=== PATIENT | male | born 1950 | race Caucasian/White ===

== ENCOUNTER → 2016-12-14 | Outpatient (CLI) | payer BC ==
--- NOTE | 2016-12-14 08:09 | RADIOLOGY REPORT (SQ) ---
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 TECHNIQUE: CT scanogram of the bilateral lower extremities is performed including pelvis to ankles. Measurements of femur, tibia, and entire lower extremities performed by the radiologist and saved to PACS. All CT scanners at this facility use dose modulation, iterative reconstruction, and/or weight based d osing when appropriate to reduce radiation dose to as low as reasonably achievable (ALARA). [facility]: Dose Right [facility]: CareDose [facility]: Dose Right [facility]: Teradose 4D [facility]: [employer] RADIATION DOSE: 0.01 mGy. LIMITATIONS: None. FINDINGS: RIGHT: FEMUR: 45.1 cm. TIBIA: 35.1 cm. TOTAL RIGHT LOWER EXTREMITY LENGTH: 80.8 cm. LEFT: FEMUR: 45.1 cm. TIBIA: 35.1 cm. TOTAL LEFT LOWER EXTREMITY LENGTH: 80.8 cm. IMPRESSION: LEG LENGTH MEASUREMENTS DETAILED ABOVE. TECHNICAL DOCUMENTATION: JOB ID: [id number] Quality ID # [id number]: Final reports with documentation of one or more dose reduction techniques (e.g., Au tomated exposure control, adjustment of the mA and/or kV according to patient size, use of iterative reconstruction technique) 2010 [employer]- All Rights Reserved
== END ==
LOC: RAD 07:17
PROVIDERS: ATTEND Podiatrist Foot & Ankle Surgery
DX: Q72.819 Congenital shortening of unspecified lower limb (principal)
CPT/HCPCS: 77073

== ENCOUNTER → 2017-06-15 | Outpatient (CLI) | payer BC ==
[2017-06-15 13:26] LABS: ABSOLUTE BASOPHILS # (AUTO) 0.1 10^3/uL (0.0-0.2); ABSOLUTE EOSINOPHILS # (AUTO) 0.2 10^3/uL (0.0-0.6); ABSOLUTE LYMPHOCYTES (AUTO) 2.7 10^3/uL (0.5-4.7); ABSOLUTE MONOCYTES (AUTO) 0.6 10^3/uL (0.1-1.4); ABSOLUTE NEUT (AUTO) 5.3 10^3/uL (1.7-8.2); EOSINOPHILS % (AUTO) 1.8 % (0-6); HEMATOCRIT 38.4 % (37.9-51.0); LYMPHOCYTES % (AUTO) 30.4 % (13-45); MEAN CORPUSCULAR HEMOGLOBIN 27.2 pg (27.0-33.4); MEAN CORPUSCULAR HGB CONC 33.8 g/dL (32.0-36.0); MEAN CORPUSCULAR VOLUME 81 fl (80-97); MONOCYTES % (AUTO) 6.9 % (3-13); PLATELET COUNT 235 10^3/uL (150-450); RED BLOOD COUNT 4.76 10^6/uL (4.35-5.55); RED CELL DISTRIBUTION WIDTH 15.5 % (11.5-14.0); SEGMENTED NEUTROPHILS % (AUTO) 59.9 % (42-78); TOTAL CELLS COUNTED % (AUTO) 100 %; WHITE BLOOD COUNT 8.8 10^3/uL (4.0-10.5)
[2017-06-15 13:48] LABS: ALANINE AMINOTRANSFERASE 36 U/L (21-72); ALBUMIN 4.4 g/dL (3.5-5.0); ALKALINE PHOSPHATASE 110 U/L (38-126); ANION GAP 11 (5-19); ASPARTATE AMINO TRANSFERASE 25 U/L (17-59); BILIRUBIN,DIRECT 0.4 mg/dL (0.0-0.4); BILIRUBIN,TOTAL 0.6 mg/dL (0.2-1.3); BLOOD UREA NITROGEN 10 mg/dL (7-20); CALCIUM 9.3 mg/dL (8.4-10.2); CARBON DIOXIDE 27 mmol/L (22-30); CHLORIDE 104 mmol/L (98-107); CHOLESTEROL 156.52 mg/dL (0-200); GLUCOSE 97 mg/dL (75-110); POTASSIUM 4.3 mmol/L (3.6-5.0); SODIUM 141.5 mmol/L (137-145); TOTAL PROTEIN 7.4 g/dL (6.3-8.2); TRIGLYCERIDES 98 mg/dL (<150)
[2017-06-15 13:58] LABS: DIRECT LDL 91 mg/dL (<100)
== END ==
LOC: OD 12:35
PROVIDERS: ATTEND Internal Medicine
DX: R63.5 Abnormal weight gain (principal); Z12.5 Encounter for screening for malignant neoplasm of prostate; Z12.12 Encounter for screening for malignant neoplasm of rectum; E29.1 Testicular hypofunction; I10 Essential (primary) hypertension; Z09 Encounter for follow-up examination after completed treatment for conditions other than malignant neoplasm
CPT/HCPCS: 36415; 84443; 84403; 85025; 80053; 80061; G0103

== ENCOUNTER → 2017-07-28 | Outpatient (CLI) | payer BC ==
--- NOTE | 2017-07-28 13:43 | EKG REPORT ---
SEVERITY:- NORMAL ECG - SINUS RHYTHM : Confirmed by: Joe York MD 28-Jul-2017 13:43:08
== END ==
LOC: OD 09:15
PROVIDERS: ATTEND Internal Medicine
DX: R07.2 Precordial pain (principal); R10.84 Generalized abdominal pain
CPT/HCPCS: 93005; 93010

== ENCOUNTER → 2017-07-28 | Outpatient (CLI) | payer BC ==
--- NOTE | 2017-07-28 09:45 | RADIOLOGY REPORT (SQ) ---
EXAM DESCRIPTION: CT ABDOMEN WITH IV ORAL CONT COMPLETED DATE/TIME: 07/28/2017 8:44 am REASON FOR STUDY: ABD PAIN R10.84 GENERALIZED ABDOMINAL PAIN COMPARISON: None. TECHNIQUE: CT scan of the abdomen performed with intravenous and with oral contrast using helical sc anning technique with dynamic intravenous contrast injection. Images reviewed with lung, soft tissue, and bone windows. Reconstructed coronal and sagittal MPR images reviewed. Delayed images for evaluat ion of the urinary system also acquired and evaluated. All images stored on PACS. All CT scanners at this facility use dose modulation, iterative reconstruc tion, and/or weight based dosing when appropriate to reduce radiation dose to as low as reasonably ac hievable (ALARA). [facility]: Dose Right [facility]: CareDose [facility]: Dose Right [facility]: Teradose 4D [facility]: [employer] CONTRAST TYPE AND DOSE: contrast/concentration: Isovue 370.00 mg/ml; Total Contrast Delivered: 100.0 ml; Total Saline Delivered: 72.0 ml RENAL FUNCTION: Creatinine 1.0. RADIATION DOSE: CT Rad equipment meets quality standard of care and radiation dose reduction techniq ues were employed. CTDIvol: 13.6 - 15.8 mGy. DLP: 1012 mGy-cm. . LIMITATIONS: None. FINDINGS: LOWER CHEST: No significant findings. No nodules or infiltrates. LIVER: Normal size. No masses. No dilated ducts. SPLEEN: Normal size. No focal lesions. PANCREAS: 3 cm mass in the head of the pancreas. GALLBLADDER: No identified stones by CT criteria. No inflammatory changes to suggest cholecystitis. ADRENAL GLANDS: No significant masses or asymmetry. RIGHT KIDNEY AND URETER: No solid masses. No significant calcifications. No hydronephrosis or hyd roureter. LEFT KIDNEY AND URETER: No solid masses. No significant calcifications. No hydronephrosis or hydr oureter. AORTA AND VESSELS: No aneurysm. No dissection. Renal arteries, SMA, celiac without stenosis. RETROPERITONEUM: No retroperitoneal adenopathy, hemorrhage or masses. BOWEL AND PERITONEAL CAVITY: Diverticulosis descending colon. No masses or inflammatory changes. No free fluid or peritoneal masses. APPENDIX: Not visualized. ABDOMINAL WALL: No masses. No hernias. BONES: No significant or acute findings. OTHER: No other significant finding. IMPRESSION: 3 cm pancreatic head mass worrisome for carcinoma. TECHNICAL DOCUMENTATION: JOB ID: [id number] Quality ID # [id number]: Final reports with documentation of one or more dose reduction techniques (e.g., Au tomated exposure control, adjustment of the mA and/or kV according to patient size, use of iterative reconstruction technique) 2010 [employer]- All Rights Reserved Reading location - IP/workstation name: [email or web address]
== END ==
LOC: RAD 07:53
PROVIDERS: ATTEND Internal Medicine
DX: R07.2 Precordial pain (principal); R10.84 Generalized abdominal pain
CPT/HCPCS: 74160; 82565

== ENCOUNTER → 2017-09-12 | Outpatient (CLI) | payer BC ==
[~2017-09-12] MED LIST: PEGFILGRASTIM INJ 6 MG/0.6 ML DISP.SYRIN SUBCUT ONE; PEGFILGRASTIM INJ 6 MG/0.6 ML DISP.SYRIN SUBCUT PRN
== END ==
LOC: II 15:57
PROVIDERS: ATTEND Internal Medicine
PROC: 3E013GC Introduction of Other Therapeutic Substance into Subcutaneous Tissue, Percutaneous Approach (ICD-10-PCS; principal; 2017-09-12)
DX: Z76.89 Persons encountering health services in other specified circumstances (principal); C25.0 Malignant neoplasm of head of pancreas; D70.1 Agranulocytosis secondary to cancer chemotherapy
CPT/HCPCS: 96372; J2505

== ENCOUNTER 2017-11-12 15:55 | Emergency (ER) | payer BC ==
[2017-11-12] MEDS ORDERED: NORMAL SALINE 1000 ML 1,000 ML IV ONE (16:33)
--- NOTE | 2017-11-12 16:39 | ER Document Report ---
ED General - General Chief Complaint: Fever Stated Complaint: FEVER Time Seen by Provider: 11/12/17 16:23 TRAVEL OUTSIDE OF THE [place] IN LAST 30 DAYS: No - HPI Notes: Patient is a 67-year-old male with a history of pancreatic cancer currently on chemotherapy who presents to the ED with complaining of a fever of 100.8 earlier today with a sore throat and hoarseness in his voice. states that he is on his last chemo treatment this week and has been doing really well with the chemotherapy. states that he has been otherwise healthy aside from today. She did give Tylenol 3 hours ago which "broke his fever." Patient has otherwise been eating and drinking, but does have a decreased p.o. intake with the soreness in his throat. He is urinating normally and having normal bowel movements. Denies any drug allergies. They did call and discuss this with an oncologist fellow at [facility] who wanted him to come get blood work done and checked out (Dr. Hernandez [phone]) who would like us to call with results. Denies any headache, head injury, neck pain, changes in vision/speech/mentation/hearing , URI, chest pain, palpitations, syncope, cough, shortness of breath, wheeze, dyspnea, abdominal pain, nausea/vomiting/diarrhea, urinary retention, dysuria, hematuria, loss of control of bowel or bladder, numbness/tingling, muscle paralysis/weakness, or rash. - Related Data Allergies/Adverse Reactions: No Known Allergies Allergy (Unverified 12/22/10 11:50) Past Medical History - Social History Smoking Status: Never Smoker Family History: Reviewed & Not Pertinent - Past Medical History Cardiac Medical History: Reports: Hx Hypertension - LOTREL Denies: Hx Coronary Artery Disease, Hx Heart Attack Pulmonary Medical History: Denies: Hx Asthma, Hx Bronchitis, Hx COPD, Hx Pneumonia Neurological Medical History: Denies: Hx Cerebrovascular Accident, Hx Seizures GI Medical History: Denies: Hx Hepatitis, Hx Hiatal Hernia, Hx Ulcer Musculoskeletal Medical History: Reports Hx Arthritis - Hands Infectious Medical History: Denies: Hx Hepatitis Past Surgical History: Denies: Hx Open Heart Surgery, Hx Pacemaker - Immunizations Hx Diphtheria, Pertussis, Tetanus Vaccination: No Review of Systems - Review of Systems -: Yes All other systems reviewed and negative Physical Exam - Vital signs Vitals: Temp Pulse Resp BP Pulse Ox 99.1 F 95 16 101/65 96 11/12/17 16:05 11/12/17 16:05 11/12/17 16:05 11/12/17 16:05 11/12/17 16:05 - Notes Notes: PHYSICAL EXAMINATION: GENERAL: Well-appearing, well-nourished and in no acute distress. HEAD: Atraumatic, normocephalic. EYES: Pupils equal round and reactive to light, extraocular movements intact, sclera anicteric, conjunctiva are normal. ENT: EAC clear b/l. TM's intact b/l without erythema, fluid, or perforation. Nares patent and without discharge. oropharynx with what appears to be a fungal white scrapable coating without purulent exudates. No tonsilar hypertrophy, + mild erythema. Moist mucous membranes. No sinus tenderness. NECK: Normal range of motion, supple without lymphadenopathy. no rigidity/ meningismus. LUNGS: Breath sounds clear to auscultation bilaterally and equal. No wheezes rales or rhonchi. HEART: Regular rate and rhythm without murmurs, rubs, gallops. ABDOMEN: Soft, nontender, nondistended abdomen. No guarding, no rebound. No masses appreciated. Normal bowel sounds present. No CVA tenderness bilaterally. Musculoskeletal: FROM to passive/active. Strength 5+/5. Extremities: No cyanosis, clubbing, or edema b/l. Peripheral pulses 2+. Capillary refill less than 3 seconds. NEUROLOGICAL: Cranial nerves grossly intact. Normal speech, normal gait. PSYCH: Normal mood, normal affect. SKIN: Warm, Dry, normal turgor, no rashes or lesions noted. Course - Re-evaluation Re-evalutation: 11/12/17 18:14 I have been reviewing this case with Dr. Hernandez who is in agreement with the plan thus far. Pt appears to have pharyngeal thrush based on H&P today. Rapid strep negative. See CBC, CMP results. Lactic negative. VGB unremarkable. BC's pending. Vitals acceptable. Rectal temp of 99.4. I did call [facility] for consult and am expecting a call back from Dr. Conner, Oncology. 11/12/17 18:47 Patient is an afebrile, well-hydrated, 67-year-old male who presents to the ED with oropharyngeal fungal infection. Vitals are acceptable without any significant tachycardia, tachypnea, or hypoxia. PE is otherwise unremarkable. Patient's lungs are clear to auscultation bilaterally. Abdomen is soft and nontender to palpation. Patient is nontoxic-appearing and is tolerating p.o. without any difficulties. I was able to speak with Dr. Conner who would like us to give him fluconazole IV 200 mg followed with 200 mg daily for 7 days with nystatin swish and swallow. He is scheduled to follow-up with the clinic this week but he may call sooner if any worsening symptoms. He would also like me to send him home with a prescription for Cipro that he is only to start using if any other symptoms arise, but needs to call them prior to starting the medication. Dr. Hernandez also eval'd this patient and does confirm the suspected dx of a fungal infection. No other labs or imaging warranted at this time based on H&P. Patient and feel competent and comfortable going home. Recheck with your oncologist this week as scheduled. Return to the ED with any worsening/concerning symptoms otherwise as reviewed in discharge. Patient and are in agreement. - Vital Signs Vital signs: Temp Pulse Resp BP Pulse Ox 99.4 F 95 15 131/81 H 100 11/12/17 18:08 11/12/17 16:05 11/12/17 18:01 11/12/17 18:01 11/12/17 18:01 - Laboratory Result Diagrams: 11/12/17 17:04 11/12/17 17:04 Laboratory results interpreted by me: 11/12/17 11/12/17 17:04 17:04 WBC 3.8 L RBC 3.15 L Hgb 8.3 L Hct 24.5 L MCV 78 L MCH 26.5 L RDW 17.5 H Plt Count 77 L Monocytes % (Manual) 14 H Metamyelocytes % 1 H Sodium 135.2 L Calcium 8.2 L Total Protein 5.0 L Albumin 2.6 L Discharge - Discharge Clinical Impression: Oropharyngeal candidiasis Condition: Stable Disposition: HOME, SELF-CARE Additional Instructions: Maintain adequate fluid intake Take meds as directed tylenol/ibuprofen as needed Before you start the antibiotic Cipro you need to call and discuss with your oncologist (this is a "just in case" medication if they decide they want you on it for new onset symptoms and/or fever, etc). Let them know that the combination of cipro and flagyl increases risk for QT prolongation as reviewed. F/u: with your Oncologist as scheduled this week, or sooner if needed (they would like you to call with any other concerns, questions, or worsening symptoms , etc) Return to the ED with any fever, headaches, changes in mental status/vision/ speech/behavior, worsening pain, neck pain/stiffness, shortness of breath, cough , drooling, increased trouble swallowing/breathing, chest pain, palpitations, syncope, abdominal pain, n/v/d, rash, or worsening/concerning symptoms otherwise. Prescriptions: Ciprofloxacin HCl [Cipro 500 mg Tablet] 500 mg PO BID #20 tablet Fluconazole [Diflucan] 200 mg PO DAILY #7 tablet Nystatin 5 ml PO QID #150 ml Forms: Elevated Blood Pressure Referrals: LYDIA PINA MD [Primary Care Provider] - Follow up as needed ONCOLOGY [Provider Group] - 11/17/17
[2017-11-12 17:19] LABS: VENOUS BLOOD HCO3 26.2 mmol/L (20-32); VENOUS BLOOD PCO2 43.8 mmHg (35-63); VENOUS BLOOD PH 7.39 (7.30-7.42)
[2017-11-12 17:31] LABS: HEMATOCRIT 24.5 % (37.9-51.0); HEMOGLOBIN 8.3 g/dL (13.5-17.0); MEAN CORPUSCULAR HEMOGLOBIN 26.5 pg (27.0-33.4); MEAN CORPUSCULAR VOLUME 78 fl (80-97); RED BLOOD COUNT 3.15 10^6/uL (4.35-5.55); RED CELL DISTRIBUTION WIDTH 17.5 % (11.5-14.0); WHITE BLOOD COUNT 3.8 10^3/uL (4.0-10.5)
[2017-11-12 17:37] LABS: ALANINE AMINOTRANSFERASE 31 U/L (21-72); ALBUMIN 2.6 g/dL (3.5-5.0); ALKALINE PHOSPHATASE 99 U/L (38-126); ANION GAP 5 (5-19); ASPARTATE AMINO TRANSFERASE 20 U/L (17-59); BILIRUBIN,DIRECT 0.2 mg/dL (0.0-0.4); BILIRUBIN,TOTAL 0.5 mg/dL (0.2-1.3); BLOOD UREA NITROGEN 8 mg/dL (7-20); CALCIUM 8.2 mg/dL (8.4-10.2); CARBON DIOXIDE 30 mmol/L (22-30); CHLORIDE 100 mmol/L (98-107); GLUCOSE 103 mg/dL (75-110); POTASSIUM 3.6 mmol/L (3.6-5.0); SODIUM 135.2 mmol/L (137-145)
[2017-11-12 17:44] LABS: PLATELET COUNT 77 10^3/uL (150-450)
[2017-11-12 17:48] LABS: ABSOLUTE LYMPHOCYTES# (MANUAL) 1.3 10^3/uL (0.5-4.7); ABSOLUTE MONOCYTES # (MANUAL) 0.5 10^3/uL (0.1-1.4); ABSOLUTE NEUTROPHILS# (MANUAL) 1.9 10^3/uL (1.7-8.2); BASOPHILS % (MANUAL) 0 % (0-2); EOSINOPHILS % (MANUAL) 2 % (0-6); LYMPHOCYTES % (MANUAL) 35 % (13-45); METAMYELOCYTES % (MANUAL) 1 % (0); MONOCYTES % (MANUAL) 14 % (3-13); SEGMENTED NEUTROPHILS % (MAN) 48 % (42-78); TOTAL CELLS COUNTED 100
[2017-11-12 17:52] LABS: ANISOCYTOSIS 1+; HYPOCHROMASIA SLIGHT; OVALOCYTES 1+; PLATELET COMMENT DECREASED; POIKILOCYTOSIS 1+; TEAR DROP CELLS SLIGHT
[2017-11-12 18:48] LABS: APPEARANCE,URINE CLEAR; BILIRUBIN,URINE NEGATIVE (NEGATIVE); COLOR,URINE COLORLESS; GLUCOSE, URINE NEGATIVE (NEGATIVE); KETONES,URINE NEGATIVE (NEGATIVE); LEUKOCYTE ESTERASE,URINE NEGATIVE (NEGATIVE); NITRITE,URINE NEGATIVE (NEGATIVE); PROTEIN,URINE NEGATIVE (NEGATIVE); URINE SPECIFIC GRAVITY 1.001; UROBILINOGEN,URINE NEGATIVE mg/dL (<2.0)
[2017-11-12] MEDS ORDERED: FLUCONAZOLE 200 MG/NS RTU 200 MG/100 ML RTUPB IV ONE (18:53)
[2017-11-12 20:07] VITALS: BP 130/85
== END 2017-11-12 20:33 | disposition home or self-care (01) ==
LOC: ER 15:55
DX: B37.0 Candidal stomatitis (principal); R50.9 Fever, unspecified; J02.9 Acute pharyngitis, unspecified; R49.0 Dysphonia; I10 Essential (primary) hypertension; C25.9 Malignant neoplasm of pancreas, unspecified; Z79.899 Other long term (current) drug therapy
CPT/HCPCS: 36591; 99284; 96361; 96365; 36415; 87040; 87070; 87086; 87880; 82962; 85025; 87077; 80053; 81001; 82803; 83605; J7030; J1450

== ENCOUNTER → 2018-03-27 | Outpatient (CLI) | payer BC ==
--- NOTE | 2018-03-27 11:55 | RADIOLOGY REPORT (SQ) ---
EXAM DESCRIPTION: CT CHEST WITH COMPLETED DATE/TIME: 03/27/2018 9:00 am REASON FOR STUDY: PANCREATIC CA (C25.0) C25.0 MALIGNANT NEOPLASM OF HEAD OF PANCREAS COMPARISON: 07/28/2017 TECHNIQUE: CT scan of the chest performed using helical scanning technique with dynamic intravenous contrast injection. Images reviewed with lung, soft tissue and bone windows. Reconstructed coronal and sagittal MPR and MIP images reviewed. All images stored on PACS. All CT scanners at this facility use dose modulation, iterative reconstruction, and/or weight based d osing when appropriate to reduce radiation dose to as low as reasonably achievable (ALARA). [facility]: Dose Right [facility]: CareDose [facility]: Dose Right [facility]: Teradose 4D [facility]: [facility] CONTRAST TYPE AND DOSE: 79 cc Omnipaque 350 RENAL FUNCTION: BUN 14, creatinine 0.5 RADIATION DOSE: . LIMITATIONS: None. FINDINGS: LUNGS AND PLEURA: No opacities, nodules, masses. No pneumothorax. No effusions. HILAR AND MEDIASTINAL STRUCTURES: No identified masses or abnormal nodes. HEART AND VASCULAR STRUCTURES: No pericardial effusion. Normal heart size. Scattered three-vessel c oronary atherosclerosis. HARDWARE: Right-sided chest port with catheter tip at cavoatrial junction. UPPER ABDOMEN: See separate report of the CT of the abdomen. THYROID AND OTHER SOFT TISSUES: No masses. No adenopathy. BONES: No significant finding. OTHER: No other significant finding. IMPRESSION: No evidence of acute intrathoracic process or intrathoracic metastatic disease. Please see same-day abdomen CT for findings below the diaphragm. TECHNICAL DOCUMENTATION: JOB ID: [id number] Quality ID # 436: Final reports with documentation of one or more dose reduction techniques (e.g., Au tomated exposure control, adjustment of the mA and/or kV according to patient size, use of iterative reconstruction technique) 2010 [email or web address]- All Rights Reserved Reading location - IP/workstation name: [email or web address]
--- NOTE | 2018-03-30 13:37 | RADIOLOGY REPORT (SQ) ---
EXAM DESCRIPTION: CT ABD/PELVIS WITH IV ORAL COMPLETED DATE/TIME: 03/27/2018 9:00 am REASON FOR STUDY: PANCREATIC CA (C25.0) C25.0 MALIGNANT NEOPLASM OF HEAD OF PANCREAS COMPARISON: CT chest abdomen pelvis 07/28/2017 [facility] CT chest abdomen pelvis 12/20/2017, [place] CONTRAST TYPE AND DOSE: contrast/concentration: Isovue 350.00 mg/ml; Total Contrast Delivered: 79.0 ml; Total Saline Delivered: 68.0 ml RENAL FUNCTION: Creatinine 0.5 TECHNIQUE: CT scan of the chest performed using helical scanning technique with dynamic intravenous contrast injection. Images reviewed with lung, soft tissue and bone windows. Reconstructed coronal a nd sagittal MPR images reviewed. All images stored on PACS. CT scan of the abdomen and pelvis performed with intravenous and with oral contrastusing helical scan katie technique with dynamic intravenous contrast injection. Images reviewed with lung, soft tissue a nd bone windows. Reconstructed coronal and sagittal MPR images reviewed. Delayed images for evaluat ion of the urinary system also acquired and evaluated. All images stored on PACS. All CT scanners at this facility use dose modulation, iterative reconstruction, and/or weight based d osing when appropriate to reduce radiation dose to as low as reasonably achievable (ALARA). [facility]: Dose Right [facility]: CareDose [facility]: Dose Right [facility]: Teradose 4D [facility]: [employer] RADIATION DOSE: CT Rad equipment meets quality standard of care and radiation dose reduction techniq ues were employed. CTDIvol: 5.9 - 6.4 mGy. DLP: 1276 mGy-cm. . LIMITATIONS: None. FINDINGS: CHEST: LUNGS AND PLEURA: No opacities, nodules, masses. No pneumothorax. No effusions. HILAR AND MEDIASTINAL STRUCTURES: No identified masses or abnormal nodes. HEART AND VASCULAR STRUCTURES: No aneurysm or dissection. No central pulmonary emboli. No pericardi al effusion. HARDWARE: Right jugular line tip superior vena cava THYROID AND OTHER SOFT TISSUES: No masses. No adenopathy. BONES: No significant finding. OTHER: No other significant finding. ABDOMEN AND PELVIS: LIVER: Progression of disease with increase in size of multiple liver lesions, index lesions are as f ollows: 3 cm sub- diaphragmatic surface left lobe liver (was 1 cm on 12/20/2017) 3 cm sub- diaphragmatic surface right lobe liver (was 1 cm on 12/20/2017 3.6 cm mass segment 8 left lobe liver (was 1.2 cm on 12/20/2017) No intrahepatic biliary ductal dilatation. SPLEEN: Normal size. No focal lesions. PANCREAS: There are now radiotherapy treatment markers around the pancreatic head. An ill-defined ma ss is present with hypodense soft tissue within the pancreatic head with surrounding fiducials measur ing about 4 by 2.2 cm in size on axial image 28. This partially encases the superior mesenteric tierney ry and vein without vascular occlusion. This is similar compared to measurements from CT 12/20/2017. GALLBLADDER: No identified stones by CT criteria. No inflammatory changes to suggest cholecystitis. ADRENAL GLANDS: No significant masses or asymmetry. RIGHT KIDNEY AND URETER: No solid masses. No significant calcification. No hydronephrosis or hydroure ter. LEFT KIDNEY AND URETER: No solid masses. Stable 2.5 cm cyst left mid pole kidney. No significant ca lcification. No hydronephrosis or hydroureter. AORTA AND VESSELS: No aneurysm. No dissection. Renal arteries, SMA, celiac without stenosis. RETROPERITONEUM: No retroperitoneal adenopathy, hemorrhage or masses. BOWEL AND PERITONEAL CAVITY: Patient drank oral contrast. No CT evidence of bowel obstruction. Mild distal descending and sigmoid colon wall thickening and luminal narrowing from colitis. No surround ing abscess or free fluid. APPENDIX: Normal. ABDOMINAL WALL: No masses. No hernias. PELVIS: No mass or free fluid. Normal bladder. BONES: No significant or acute findings. OTHER: No other significant finding. IMPRESSION: No CT evidence of metastatic disease to the chest Increase in size and number of metastatic lesions to the liver Stable appearance of the pancreatic head mass with surrounding radiotherapy treatment markers TECHNICAL DOCUMENTATION: JOB ID: [id number] Quality ID # 436: Final reports with documentation of one or more dose reduction techniques (e.g., Au tomated exposure control, adjustment of the mA and/or kV according to patient size, use of iterative reconstruction technique) 2010 [email or web address]- All Rights Reserved Reading location - IP/workstation name: [email or web address]
== END ==
LOC: RAD 08:16
PROVIDERS: ATTEND Internal Medicine
DX: C25.0 Malignant neoplasm of head of pancreas (principal)
CPT/HCPCS: 71260; 74177